=== PATIENT | male | born 1995 | race Caucasian/White ===

== ENCOUNTER 2019-05-22 18:07 | Emergency (ER) | payer OTHER ==
[~2019-05-22] VITALS: Ht 167.6 cm; Wt 68.0 kg
[~2019-05-22 18:07] MED LIST: CITRATE OF MAG296 ML PO; MIRALAX17 GM PO; NOHOMEMEDICATIONS
[2019-05-22] MEDS ORDERED: FLUOXETINE HCL40 MG PO (18:13)
[2019-05-22] MEDS ORDERED: PREDNISONE 20 M20 MG PO (18:57)
[2019-05-22] MEDS ORDERED: ZYRTEC10 MG PO (18:57)
[2019-05-22 19:00] VITALS: BP 134/94
== END 2019-05-22 19:00 | disposition home or self-care (01) ==
LOC: ER 18:07
DX: S40.261A Insect bite (nonvenomous) of right shoulder, initial encounter (principal); Z79.899 Other long term (current) drug therapy; Z98.890 Other specified postprocedural states; W57.XXXA Bitten or stung by nonvenomous insect and other nonvenomous arthropods, initial encounter; Y93.89 Activity, other specified; Y92.89 Other specified places as the place of occurrence of the external cause; Y99.9 Unspecified external cause status